=== PATIENT | male | born 1965 | race African-American/Black ===

== ENCOUNTER 2018-10-13 17:15 | Emergency (ER) | payer OTHER ==
[~2018-10-13] VITALS: Ht 167.6 cm; Wt 72.6 kg
[2018-10-13 18:29] LABS: URINE BILIRUBIN NEGATIVE (Negative); URINE BLOOD 1+ (Negative); URINE CLARITY CLEAR; URINE COLOR YELLOW; URINE GLUCOSE-RANDOM NEGATIVE (Negative); URINE KETONES NEGATIVE (Negative); URINE LEUKOCYTES-REFLEX NEGATIVE (Negative); URINE NITRITE-REFLEX NEGATIVE (Negative); URINE PROTEIN TRACE (Negative); URINE UROBILINOGEN 0.2 E.U./dl (0.2-1.0)
[2018-10-13 18:30] LABS: ABSOLUTE BASOPHILS 0.1 thou/uL (0.0-0.2); ABSOLUTE EOSINOPHILS 0.3 thou/uL (0.0-0.7); ABSOLUTE LYMPHOCYTES 2.2 thou/uL (0.8-5.3); ABSOLUTE MONOCYTES 1.3 thou/uL (0.0-1.2); ABSOLUTE NEUTROPHILS 6.4 thou/uL (1.6-8.1); BASOPHILS 0.9 %; EOSINOPHILS 2.6 %; HEMATOCRIT 41.8 % (42.0-52.0); LYMPHOCYTES 21.2 %; MCH 28.2 pg (26.0-34.0); MCHC 33.5 g/dL (28.0-37.0); MCV 84.3 fL (80.0-100.0); MONOCYTES 12.7 %; MPV 7.6 fl. (7.2-11.1); NUCLEATED RBCS 0 /100WBC; PLATELET COUNT* 258 thou/uL (150-400); POLYS 62.6 %; RBC 4.96 mil/uL (4.50-6.00); RDW-CV 14.7 % (10.5-14.5); WBC 10.2 thou/uL (4.0-11.0)
[2018-10-13 18:39] LABS: CALCIUM 9.1 mg/dL (8.5-10.1); CREATININE 1.3 mg/dL (0.6-1.3); POTASSIUM 4.1 mmol/L (3.5-5.1)
[2018-10-13 18:44] LABS: ALBUMIN 3.6 g/dL (3.4-5.0); TOTAL BILIRUBIN 0.4 mg/dL (<0.1-1.0); TOTAL PROTEIN 7.2 g/dL (6.4-8.2)
[2018-10-13 18:46] LABS: BACTERIA-REFLEX 1-9 Few /HPF (None Seen); CASTS None Seen /LPF (None Seen); CRYSTALS None Seen /LPF (None Seen); SQUAMOUS NONE SEEN /LPF (0-3); URINE RBC None Seen /HPF (0-2); URINE WBC-REFLEX None Seen /HPF (0-5)
[2018-10-13] MEDS ORDERED: TORADOL 10 MG T10 MG PO (19:26)
[2018-10-13 19:34] VITALS: BP 144/87
--- NOTE | 2018-10-16 13:23 | EKG ---
[place] [address] ELECTROCARDIOGRAM REPORT Name: EMERY ADAM Room: [facility]#: [id number] Admission: 10/13/18 Attend Phys: Discharge: 10/13/18 Date of : 69 Report #: [id number] THIS REPORT FOR: //name// [facility] ED Test Date: 2018-10-13 Test Time: 18:32:48 Pat Name: EMERY ADAM Department: Room: Gender: M Engineering Aid: : 1965 Requested By: Tiffanie Mancini Order Number: [id number] MD: Vernon Pikn Measurements Intervals [place] Rate: 72 P: 54 CA: 146 QRS: 74 QRSD: 91 T: 48 QT: 358 QTc: 392 Interpretive Statements Sinus rhythm ST elev, probable normal early repol pattern Baseline wander in lead(s) I,II,aVR,aVF No previous ECG available for comparison Electronically Signed On 10-16-2018 13:23:26 CDT by Vernon Pink [email or web address] <ELECTRONICALLY SIGNED> By: Vernon Pink MD, [facility] 10/16/18 1323 31 31 Vernon Pink MD, [facility] /EPI
== END 2018-10-13 19:34 | disposition home or self-care (01) ==
LOC: M.ERS 17:15
PROVIDERS: Nurse Practitioner Family
DX: K59.00 Constipation, unspecified (principal); I10 Essential (primary) hypertension; F17.210 Nicotine dependence, cigarettes, uncomplicated; Z88.0 Allergy status to penicillin